=== PATIENT | female | born 1985 | race Two or more races ===

== ENCOUNTER 2018-05-22 13:58 | Inpatient (IN) | payer OTHER ==
[~2018-05-22 13:58] MED LIST: OXYTOCIN 30 UNITS/LR 500 ML BAG IV
[2018-05-22 15:56] LABS: ADD MAN DIFF? NO
[2018-05-22 15:59] LABS: BASOPHIL # 0.1 10^3/ul (0.0-0.1); BASOPHILS % 0.8 % (0.0-2.0); EOSINOPHILS # 0.2 10^3/ul (0.0-0.5); EOSINOPHILS % 1.6 % (0.0-7.0); HEMATOCRIT 38.7 % (37.0-47.0); HEMOGLOBIN 12.7 g/dl (12.0-16.0); LYMPHOCYTES # 2.1 10^3/ul (0.8-2.9); LYMPHOCYTES % 22.7 % (15.0-51.0); MEAN CORPUSCULAR HEMOGLOBIN 28.3 pg (29.0-33.0); MEAN CORPUSCULAR HGB CONC 32.8 g/dl (32.0-37.0); MEAN CORPUSCULAR VOLUME 86.2 fl (82.0-101.0); MEAN PLATELET VOLUME 10.3 fl (7.4-10.4); MONOCYTE # 1.2 10^3/ul (0.3-0.9); MONOCYTES % 12.9 % (0.0-11.0); NEUTROPHIL # 5.3 10^3/ul (1.6-7.5); PLATELET COUNT 165 10^3/UL (140-415); RED BLOOD COUNT 4.49 10^6/ul (4.20-5.40); RED CELL DISTRIBUTION WIDTH 21.2 % (11.5-14.5)
[2018-05-22 15:59] LABS: WHITE BLOOD COUNT 9.3 10^3/ul (4.8-10.8)
[2018-05-22] MEDS ORDERED: CEFAZOLIN 2 GM/50 ML (PMX) 50 ML IV (16:00)
[2018-05-22] MEDS ORDERED: CARBOPROST 250 MCG INJ IM ×3 (16:00→21:30)
[2018-05-22] MEDS ORDERED: MISOPROSTOL 200 MCG TAB PR ×3 (16:00→21:30)
[2018-05-22] MEDS ORDERED: METHYLERGONOVINE 0.2 MG INJ IM ×3 (16:00→21:30)
[2018-05-22] MEDS ORDERED: OXYTOCIN 30 UNITS/LR 500 ML IV ×3 (16:00→21:30)
[2018-05-22 16:17] LABS: INR 0.98; PARTIAL THROMBOPLASTIN TIME 27.4 Sec (25.0-35.0); PROTIME 13.1 Sec (11.9-14.9)
[2018-05-22] MEDS: LACTATED RINGER'S 1,000 ML IV ×2 (16:33→16:52)
[2018-05-22 16:47] LABS: HEPATITIS B SURFACE ANTIGEN NEGATIVE (NEGATIVE)
[2018-05-22] MEDS ORDERED: BUPIVACAINE 0.75%/DEXT (SPINAL) 2 ML INJ (17:32)
[2018-05-22] MEDS ORDERED: OXYTOCIN 10 UNIT INJ (17:32)
[2018-05-22] MEDS ORDERED: PHENYLephrine 10 MG INJ (17:32)
[2018-05-22] MEDS ORDERED: ONDANSETRON 4 MG INJ (17:32)
[2018-05-22] MEDS ORDERED: morphine SULFATE/PF (10 MG/10 ML) INJ (17:32)
[2018-05-22] MEDS ORDERED: PHENYLephrine (100 MCG/ML) 5ML SYG (17:44)
[2018-05-22] MEDS ORDERED: FENTAnyl 50 MCG/ML VIAL (18:12)
[2018-05-22] MEDS ORDERED: NALOXONE (0.4 MG/ML) INJ IV (19:00)
[2018-05-22] MEDS ORDERED: morphine 2 MG INJ IV (19:00)
[2018-05-22] MEDS ORDERED: ONDANSETRON 4 MG INJ IV (19:00)
[2018-05-22] MEDS ORDERED: MEPERIDINE 50 MG INJ (19:03)
[2018-05-22] MEDS ORDERED: MEPERIDINE 25 MG INJ IV (19:11)
[2018-05-22] MEDS: MEPERIDINE 25 MG INJ IV (19:20)
[2018-05-22 19:58] LABS: RAPID PLASMA REAGIN NONREACTIVE (NR)
[2018-05-22] MEDS: OXYTOCIN 30 UNITS/LR 500 ML IV (20:30)
[2018-05-22] MEDS: DIPHENHYDRAMINE 50 MG INJ IV (20:46)
[2018-05-22] MEDS ORDERED: OXYCODONE/ACETAMINOPHEN (5/325) TAB PO (21:30)
[2018-05-23] MEDS: KETOROLAC 30 MG INJ IV ×2 (00:19→16:28)
[2018-05-23] MEDS: OXYTOCIN 30 UNITS/LR 500 ML IV ×5 (01:19→12:40)
[2018-05-23] MEDS: CEFAZOLIN 1 GM/50 ML (PMX) 50 ML IVPB (03:27)
[2018-05-23] MEDS: CEFAZOLIN 2 GM/50 ML (PMX) 50 ML IVPB (03:29)
[2018-05-23] MEDS: LANOLIN 7 GM TUBE TOP (06:19)
[2018-05-23] MEDS: LACTATED RINGER'S 1,000 ML IV ×3 (07:42→23:42)
[2018-05-23 08:21] LABS: ADD MAN DIFF? NO
[2018-05-23 08:28] LABS: ABNORMAL IP MESSAGE 1; BASOPHIL # 0.1 10^3/ul (0.0-0.1); BASOPHILS % 0.4 % (0.0-2.0); EOSINOPHILS # 0.2 10^3/ul (0.0-0.5); EOSINOPHILS % 1.5 % (0.0-7.0); HEMATOCRIT 37.8 % (37.0-47.0); HEMOGLOBIN 12.2 g/dl (12.0-16.0); LYMPHOCYTES # 1.5 10^3/ul (0.8-2.9); LYMPHOCYTES % 13.2 % (15.0-51.0); MEAN CORPUSCULAR HEMOGLOBIN 28.2 pg (29.0-33.0); MEAN CORPUSCULAR HGB CONC 32.3 g/dl (32.0-37.0); MEAN CORPUSCULAR VOLUME 87.3 fl (82.0-101.0); MONOCYTE # 1.8 10^3/ul (0.3-0.9); MONOCYTES % 16.1 % (0.0-11.0); NEUTROPHIL # 7.6 10^3/ul (1.6-7.5); PLATELET COUNT 173 10^3/UL (140-415); RED BLOOD COUNT 4.33 10^6/ul (4.20-5.40); RED CELL DISTRIBUTION WIDTH 21.2 % (11.5-14.5)
[2018-05-23 08:28] LABS: WHITE BLOOD COUNT 11.4 10^3/ul (4.8-10.8)
[2018-05-23 08:33] LABS: POSITIVE DIFF @See below
[2018-05-23] MEDS: SENNA/DOCUSATE NA (8.6MG/50MG) TAB PO ×2 (08:59→21:22)
[2018-05-23] MEDS: DIPHENHYDRAMINE 50 MG INJ IV (11:27)
[2018-05-23] MEDS: IBUPROFEN 600 MG TAB PO (17:24)
[2018-05-23] MEDS: OXYCODONE/ACETAMINOPHEN (5/325) TAB PO ×2 (18:46→22:51)
[2018-05-24] MEDS: IBUPROFEN 600 MG TAB PO ×5 (00:15→23:37)
[2018-05-24] MEDS: LACTATED RINGER'S 1,000 ML IV (07:42)
[2018-05-24] MEDS: SENNA/DOCUSATE NA (8.6MG/50MG) TAB PO ×2 (09:23→21:26)
[2018-05-24] MEDS: HYDROCODONE/APAP (5/325) TAB PO (15:57)
[2018-05-25] MEDS: HYDROCODONE/APAP (5/325) TAB PO (00:21)
[2018-05-25] MEDS: IBUPROFEN 600 MG TAB PO ×2 (06:09→11:43)
[2018-05-25] MEDS ORDERED: DIPHTH/TET/ACEL PERTUSS (ADULT) 0.5 ML VIAL IM* (09:00)
[2018-05-25] MEDS: SENNA/DOCUSATE NA (8.6MG/50MG) TAB PO (11:43)
== END 2018-05-25 15:45 | disposition home or self-care (01) | DRG 766 ==
LOC: OBT 13:58 → L-D 13:58 → OBT 14:10 → L-D 14:10 → PP1 21:30
PROVIDERS: Obstetrics & Gynecology
PROC: 10D00Z1 Extraction of Products of Conception, Low, Open Approach (ICD-10-PCS; principal; 2018-05-22 16:00)
DX: O34.211 Maternal care for low transverse scar from previous cesarean delivery (principal); Z3A.38 38 weeks gestation of pregnancy; Z37.0 Single live birth
CPT/HCPCS: 85025; 85610; 85730; 86592; 86850; 86900; 86901; 87340; 99464